=== PATIENT | female | born 1995 | race Caucasian/White ===

== ENCOUNTER 2017-11-15 05:53 | Emergency (ER) | payer SELFPAY ==
[~2017-11-15] VITALS: Ht 160 cm; Wt 62.5 kg
[2017-11-15] MEDS ORDERED: CEPH-376 PO (06:17)
[2017-11-15 06:36] LABS: CULTURE INDICATED? NO; MICROSCOPIC NOT IND
[2017-11-15 07:54] VITALS: BP 122/81
== END 2017-11-15 07:56 | disposition home or self-care (01) ==
LOC: ED 07:25
DX: R10.9 Unspecified abdominal pain (principal); M54.5 Low back pain; F17.200 Nicotine dependence, unspecified, uncomplicated
CPT/HCPCS: 81003; 99283